=== PATIENT | female | born 1950 | race Caucasian/White ===

== ENCOUNTER 2020-08-16 11:15 | Observation (INO) | payer MEDICARE, OTHER ==
[2020-08-16] MEDS ORDERED: NITROGLYCERIN OINT 1 INCH/GM PACKET TOPICAL STA (11:48)
[2020-08-16] MEDS ORDERED: ASPIRIN 81 MG PO STA (11:48)
--- NOTE | 2020-08-16 11:55 | ED ---
General Adult HPI - General Chief complaint: Chest Pain Stated complaint: SOB Time Seen by Provider: 08/16/20 11:25 Source: patient, RN notes reviewed, old records reviewed Mode of arrival: wheelchair Limitations: no limitations - History of Present Illness Initial comments: This is a 70-year-old male who presents emergency Department complaining of dif ficulty breathing when she woke up today. Patient states she's also had quite a bit of chest discomfort she says is mostly a tightness. Patient states she has a history of COPD because she was a smoker and smoked marijuana for many years. Patient also states she has high blood pressure high cholesterol. Patient denies any diabetes that she has been told in the past she has been borderline. Patient states she is continuing to have chest tightness and she is having occasional back spasms. Patient denies any fever chills or cough. Patient denies any headache patient denies lightheadedness or dizziness. - Related Data Home Medications Medication Instructions Recorded Confirmed Albuterol Sulfate [Ventolin HFA] 2 puff INHALATION RT-Q6H PRN 08/16/20 08/16/20 Fluticasone Nasal [place] [Flonase 2 spr EA NOSTRIL DAILY 08/16/20 08/16/20 Nasal [place]] Ibuprofen [Motrin Ib] 600 mg PO Q8H PRN 08/16/20 08/16/20 Loperamide [Imodium] 2 mg PO BID 08/16/20 08/16/20 Methocarbamol [Robaxin-750] 750 mg PO BID PRN 08/16/20 08/16/20 Omeprazole 40 mg PO DAILY 08/16/20 08/16/20 clonazePAM [KlonoPIN] 0.5 mg PO BID PRN 08/16/20 08/16/20 hydroCHLOROthiazide [Hydrodiuril] 25 mg PO DAILY 08/16/20 08/16/20 lisinopriL [Zestril] 20 mg PO DAILY 08/16/20 08/16/20 Allergies Allergy/AdvReac Type Severity Reaction Status Date / Time citalopram [From Celexa] Allergy Unknown Verified 08/16/20 14:49 codeine Allergy Unknown Verified 08/16/20 14:49 Review of Systems ROS Statement: Those systems with pertinent positive or pertinent negative responses have been documented in the HPI. ROS Other: All systems not noted in ROS Statement are negative. Past Medical History Past Medical History: Hypertension History of Any Multi-Drug Resistant Organisms: None Reported Past Surgical History: Back Surgery Past Psychological History: Anxiety, Depression, PTSD Smoking Status: Never smoker Past Alcohol Use History: None Reported Past Drug Use History: Marijuana General Exam - General Exam Comments Initial Comments: GENERAL: Patient is well-developed and well-nourished. Patient is nontoxic and well- hydrated and is in mild distress. ENT: Neck is soft and supple. No significant lymphadenopathy is noted. Oropharynx is clear. Moist mucous membranes. Neck has full range of motion without cathi citing any pain. EYES: The sclera were anicteric and conjunctiva were pink and moist. Extraocular movements were intact and pupils were equal round and reactive to light. Eyelids were unremarkable. PULMONARY: Unlabored respirations. Good breath sounds bilaterally. No audible rales rhonchi or wheezing was noted. CARDIOVASCULAR: There is a regular rate and rhythm without any murmurs gallops or rubs. ABDOMEN: Soft and nontender with normal bowel sounds. SKIN: Skin is clear with no lesions or rashes and otherwise unremarkable. NEUROLOGIC: Patient is alert and oriented x3. Cranial nerves II through XII are grossly intact. Motor and sensory are also intact. Normal speech, volume and content. Symmetrical smile. MUSCULOSKELETAL: Normal extremities with adequate strength and full range of motion. LYMPHATICS: No significant lymphadenopathy is noted PSYCHIATRIC: Normal psychiatric evaluation. Limitations: no limitations Course Vital Signs 08/16/20 08/16/20 08/16/20 11:25 14:14 15:10 Temperature 97.6 F Pulse Rate 70 77 80 Respiratory 19 18 16 Rate Blood Pressure 115/60 104/57 114/63 O2 Sat by Pulse 100 96 96 Oximetry Medical Decision Making - Medical Decision Making EKG shows normal sinus rhythm at 90 bpm FL interval 240 QRS is 76 Q-T intervals 374 QTC is 457. Patient's EKG shows no ST segment elevation or depression. I will back and to reevaluate the patient patient continued to be short of breath and has some chest discomfort. Chest x-ray shows no acute abnormalities. D-dimer was elevated so I did a CAT scan of the chest showed no acute PE. I started a heparin on the patient because of the unstable angina. I spoke with the sound physician's agreed to admit the patient admitted the patient I consult cardiology I continue the heparin Nitropaste. - Lab Data Result diagrams: 08/16/20 11:56 08/16/20 11:48 Lab Results 08/16/20 08/16/20 08/16/20 Range/Units 11:48 11:48 11:48 WBC (3.8-10.6) k/uL RBC (3.80-5.40) m/uL Hgb (11.4-16.0) gm/dL Hct (34.0-46.0) % MCV (80.0-100.0) fL MCH (25.0-35.0) pg MCHC (31.0-37.0) g/dL RDW (11.5-15.5) % Plt Count (150-450) k/uL MPV Neutrophils % % Lymphocytes % % Monocytes % % Eosinophils % % Basophils % % Neutrophils # (1.3-7.7) k/uL Lymphocytes # (1.0-4.8) k/uL Monocytes # (0-1.0) k/uL Eosinophils # (0-0.7) k/uL Basophils # (0-0.2) k/uL PT (9.0-12.0) sec INR (<1.2) APTT (22.0-30.0) sec D-Dimer (<0.60) mg/L FEU Sodium 136 L (137-145) mmol/L Potassium 5.4 H (3.5-5.1) mmol/L Chloride 106 (98-107) mmol/L Carbon Dioxide 19 L (22-30) mmol/L Anion Gap 11 mmol/L BUN 42 H (7-17) mg/dL Creatinine 1.28 H (0.52-1.04) mg/dL Est GFR (CKD-EPI)AfAm 49 (>60 ml/min/1.73 sqM) Est GFR (CKD-EPI)NonAf 43 (>60 ml/min/1.73 sqM) Glucose 135 H (74-99) mg/dL Calcium 10.1 (8.4-10.2) mg/dL Magnesium 1.8 (1.6-2.3) mg/dL Total Bilirubin 1.2 (0.2-1.3) mg/dL AST 50 H (14-36) U/L ALT 19 (4-34) U/L Alkaline Phosphatase 90 (38-126) U/L Troponin I <0.012 (0.000-0.034) ng/mL NT-Pro-B Natriuret Pep 46 pg/mL Total Protein 8.3 H (6.3-8.2) g/dL Albumin 5.0 (3.5-5.0) g/dL 08/16/20 08/16/20 Range/Units 11:56 11:56 WBC 6.6 (3.8-10.6) k/uL RBC 4.02 (3.80-5.40) m/uL Hgb 11.8 (11.4-16.0) gm/dL Hct 35.1 (34.0-46.0) % MCV 87.3 (80.0-100.0) fL MCH 29.4 (25.0-35.0) pg MCHC 33.7 (31.0-37.0) g/dL RDW 13.4 (11.5-15.5) % Plt Count 295 (150-450) k/uL MPV 6.9 Neutrophils % 57 % Lymphocytes % 33 % Monocytes % 5 % Eosinophils % 2 % Basophils % 1 % Neutrophils # 3.7 (1.3-7.7) k/uL Lymphocytes # 2.2 (1.0-4.8) k/uL Monocytes # 0.3 (0-1.0) k/uL Eosinophils # 0.1 (0-0.7) k/uL Basophils # 0.0 (0-0.2) k/uL PT 10.2 (9.0-12.0) sec INR 0.9 (<1.2) APTT 22.9 (22.0-30.0) sec D-Dimer 0.86 H (<0.60) mg/L FEU Sodium (137-145) mmol/L Potassium (3.5-5.1) mmol/L Chloride (98-107) mmol/L Carbon Dioxide (22-30) mmol/L Anion Gap mmol/L BUN (7-17) mg/dL Creatinine (0.52-1.04) mg/dL Est GFR (CKD-EPI)AfAm (>60 ml/min/1.73 sqM) Est GFR (CKD-EPI)NonAf (>60 ml/min/1.73 sqM) Glucose (74-99) mg/dL Calcium (8.4-10.2) mg/dL Magnesium (1.6-2.3) mg/dL Total Bilirubin (0.2-1.3) mg/dL AST (14-36) U/L ALT (4-34) U/L Alkaline Phosphatase (38-126) U/L Troponin I (0.000-0.034) ng/mL NT-Pro-B Natriuret Pep pg/mL Total Protein (6.3-8.2) g/dL Albumin (3.5-5.0) g/dL Critical Care Time Critical Care Time: Yes Total Critical Care Time: 35 Disposition Clinical Impression: Unstable angina pectoris Disposition: ADMITTED IP TO THIS [facility] Referrals: Nonstaff,Physician [Primary Care Provider] - 1-2 days Time of Disposition: 15:48
[2020-08-16 12:18] LABS: Calcium 10.1 mg/dL (8.4-10.2); Total Bilirubin 1.2 mg/dL (0.2-1.3); Total Protein 8.3 g/dL (6.3-8.2)
--- NOTE | 2020-08-16 12:18 | XR ---
EXAMINATION TYPE: XR chest 2V DATE OF EXAM: 08/16/2020 COMPARISON: NONE HISTORY: Chest pain and shortness of breath TECHNIQUE: Frontal and lateral views of the chest are obtained. FINDINGS: There is no focal air space opacity, pleural effusion, or pneumothorax seen. The cardiac silhouette size is within normal limits. There are overlying leads. There is an S-shaped scoliosis i n the visualized spine, associated degenerative disc changes. Suspect a posterior diaphragmatic herni a on the left. The osseous structures are intact. IMPRESSION: No acute cardiopulmonary process. Probable posterior diaphragmatic hernia on the left.
[2020-08-16 12:19] LABS: Magnesium 1.8 mg/dL (1.6-2.3); Potassium 5.4 mmol/L (3.5-5.1)
[2020-08-16 13:08] LABS: Basophils % (A) 1 %; Eosinophils # (A) 0.1 k/uL (0-0.7); Eosinophils % (A) 2 %; HCT 35.1 % (34.0-46.0); HGB 11.8 gm/dL (11.4-16.0); Lymphocytes # (A) 2.2 k/uL (1.0-4.8); Lymphocytes % (A) 33 %; MCH 29.4 pg (25.0-35.0); MCHC 33.7 g/dL (31.0-37.0); MCV 87.3 fL (80.0-100.0); Mean Platelet Volume 6.9; Monocytes # (A) 0.3 k/uL (0-1.0); Monocytes % (A) 5 %; Neutrophils # (A) 3.7 k/uL (1.3-7.7); Neutrophils % (A) 57 %; Platelet Count 295 k/uL (150-450); RBC 4.02 m/uL (3.80-5.40); RDW 13.4 % (11.5-15.5); WBC 6.6 k/uL (3.8-10.6)
[2020-08-16 13:22] LABS: INR 0.9 (<1.2); Partial Thromboplastin Time 22.9 sec (22.0-30.0); Prothrombin Time 10.2 sec (9.0-12.0)
[2020-08-16 13:33] LABS: D-Dimer 0.86 mg/L FEU (<0.60)
--- NOTE | 2020-08-16 15:41 | CT ---
EXAMINATION TYPE: CT chest angio for PE DATE OF EXAM: 08/16/2020 COMPARISON: Chest x-ray 08/16/2020 HISTORY: SOB, chest pain CT DLP: 306.4 mGycm Automated exposure control for dose reduction was used. CONTRAST: CT Chest for pulmonary embolism performed with with IV Contrast, patient injected with 80cc mL of Iso stiven 370. FINDINGS: LUNGS: The lungs are grossly clear, there is no concerning parenchymal mass or nodule identified. T here is no pleural effusion or pneumothorax seen. The tracheobronchial tree is patent. MEDIASTINUM: There is satisfactory enhancement of the pulmonary artery and its branches, there is no CT evidence for pulmonary embolism. There are no greater than 1 cm hilar or mediastinal lymph nodes. No pericardial effusion is seen. AORTA: No additional significant abnormality is seen. For super aortic branch vessels are present OTHER: Posterior diaphragmatic hernia contains fat and the left adrenal gland. Patient is post elma cystectomy. IMPRESSION: No evident pulmonary embolus. Posterior left diaphragmatic hernia.
[2020-08-16] MEDS ORDERED: NITROGLYCERIN SL TABS 0.4 MG TAB SUBLINGUAL PRN (15:48)
[2020-08-16] MEDS ORDERED: NALOXONE 0.4 MG/ML 1 ML VIAL IV PRN (18:08)
[2020-08-16] MEDS ORDERED: ACETAMINOPHEN TAB 325 MG TAB PO PRN (18:08)
[2020-08-16] MEDS ORDERED: ALBUTEROL NEBULIZED 2.5 MG/3 ML INHALATION PRN (18:10)
[2020-08-16] MEDS ORDERED: methocarbamoL 750 MG TAB PO PRN (18:10)
--- NOTE | 2020-08-16 18:12 | P.HPIM ---
History of Present Illness H&P Date: 08/16/20 Chief Complaint: Chest tightness, dyspnea 70-year-old woman with medical history of hypertension, chronic pain, IBS, COPD presented with chest tightness, dyspnea. Patient says her symptoms started this morning around 9:30 and got progressively worse throughout the day, prompting her visit to the emergency room. Since her arrival to the ER, her symptoms did get better but have not resolved. She still feels mild chest tightness as well as dyspnea. She is however on room air, EKG was nonischemic, troponin was negative. She reports symptoms of back pain (chronic), diarrhea (chronic), nausea, (chronic). She denies fevers, chills, abdominal pain, numbness/weakness of extremities, dysuria, dyschezia. In the emergency room she is afebrile, hemodynamically stable, 98% on room air. Chemistries demonstrate hyperkalemia to 5.4, BUNs of 42, creatinine of 1.3. LFTs demonstrate AST of 50, ALT of 19. Troponins were negative 2. Chest x-ray and CTA were negative for acute cardiopulmonary process, but did demonstrate posterior diaphragmatic hernia on the left. Review of Systems All Systems reviewed and pertinent positives and negatives noted in HPI, all other symptoms are negative Past Medical History Past Medical History: Hypertension History of Any Multi-Drug Resistant Organisms: None Reported Past Surgical History: Back Surgery Past Psychological History: Anxiety, Depression, PTSD Smoking Status: Never smoker Past Alcohol Use History: None Reported Past Drug Use History: Marijuana Medications and Allergies Home Medications Medication Instructions Recorded Confirmed Type Albuterol Sulfate [Ventolin HFA] 2 puff INHALATION RT-Q6H PRN 08/16/20 08/16/20 History Fluticasone Nasal [place] [Flonase 2 spr EA NOSTRIL DAILY 08/16/20 08/16/20 History Nasal [place]] Ibuprofen [Motrin Ib] 600 mg PO Q8H PRN 08/16/20 08/16/20 History Loperamide [Imodium] 2 mg PO BID 08/16/20 08/16/20 History Methocarbamol [Robaxin-750] 750 mg PO BID PRN 08/16/20 08/16/20 History Omeprazole 40 mg PO DAILY 08/16/20 08/16/20 History clonazePAM [KlonoPIN] 0.5 mg PO BID PRN 08/16/20 08/16/20 History hydroCHLOROthiazide [Hydrodiuril] 25 mg PO DAILY 08/16/20 08/16/20 History lisinopriL [Zestril] 20 mg PO DAILY 08/16/20 08/16/20 History Allergies Allergy/AdvReac Type Severity Reaction Status Date / Time citalopram [From Celexa] Allergy Unknown Verified 08/16/20 14:49 codeine Allergy Unknown Verified 08/16/20 14:49 Physical Exam Osteopathic Statement: *. No significant issues noted on an osteopathic structural exam other than those noted in the History and Physical/Consult. Vitals: Vital Signs Temp Pulse Resp BP Pulse Ox 08/16/20 17:34 98.1 F 79 18 103/57 98 08/16/20 15:10 80 16 114/63 96 08/16/20 14:14 77 18 104/57 96 08/16/20 11:25 97.6 F 70 19 115/60 100 Intake and Output 08/16/20 08/16/20 08/16/20 06:59 14:59 22:59 Other: Weight 68.039 kg Gen: awake, alert HEENT: normocephalic, atraumatic, good hearing acuity, moist mucous membranes Resp: good air exchange, breathing comfortably with no accessory muscle use, clear to auscultation bilaterally without wheezes or crackles CVS: good distal perfusion x 4, regular rate and rhythm without murmurs GI: soft, NTTP, ND : no SPT, no CVAT, jacobs catheter not present MSK: no pitting edema, no clubbing Neuro: non-focal, moving all extremities Psych: cooperative, euthymic mood Results CBC & Chem 7: 08/16/20 11:56 08/16/20 11:48 Labs: Abnormal Lab Results - Last 24 Hours (Table) 08/16/20 08/16/20 Range/Units 11:48 11:56 D-Dimer 0.86 H (<0.60) mg/L FEU Sodium 136 L (137-145) mmol/L Potassium 5.4 H (3.5-5.1) mmol/L Carbon Dioxide 19 L (22-30) mmol/L BUN 42 H (7-17) mg/dL Creatinine 1.28 H (0.52-1.04) mg/dL Glucose 135 H (74-99) mg/dL AST 50 H (14-36) U/L Total Protein 8.3 H (6.3-8.2) g/dL Assessment and Plan Assessment: Chest pressure Dyspnea -Admit to observation, telemetry -Cardiology consult to the ER -Aspirin daily -Trend troponins -Oxygen when necessary -DuoNeb's when necessary Acute Kidney Injury -IVF -repeat BMP, Mg tomorrow AM COPD without exacerbation Hypertension Mood disorder Irritable bowel syndrome Chronic pain -Home medications were reviewed and reconciled -Continue home Albuterol -Hold Home HCTZ, Lisinopril -Hold home ibuprofen -Continue home methocarbamol, clonazepam Heparin 3 times a day for DVT prophylaxis Patient is a full code
[2020-08-16] MEDS: NITROGLYCERIN OINT 1 INCH/GM PACKET TOPICAL SCH (19:18)
[2020-08-16] MEDS: SODIUM CHLORIDE 0.9% 1,000 ML IV SCH (19:22)
[2020-08-16] MEDS: IPRATROPIUM-ALBUTEROL 3 ML NEB INHALATION PRN (20:15)
[2020-08-16] MEDS: LOPERAMIDE 2 MG CAP PO SCH (22:09)
[2020-08-16] MEDS: clonazePAM 0.5 MG TAB PO PRN (22:22)
[2020-08-17] MEDS: HEPARIN SODIUM,PORCINE/PF 5,000 UNIT/0.5 ML SYRINGE SQ SCH ×4 (00:35→23:22)
[2020-08-17] MEDS: NITROGLYCERIN OINT 1 INCH/GM PACKET TOPICAL SCH ×2 (00:36→06:22)
[2020-08-17] MEDS: SODIUM CHLORIDE 0.9% 1,000 ML IV SCH ×3 (05:04→23:23)
[2020-08-17 05:48] LABS: Basophils # (A) 0.1 k/uL (0-0.2); Basophils % (A) 1 %; Eosinophils # (A) 0.1 k/uL (0-0.7); Eosinophils % (A) 2 %; HCT 33.4 % (34.0-46.0); HGB 10.8 gm/dL (11.4-16.0); Hypochromasia Slight; Lymphocytes # (A) 2.7 k/uL (1.0-4.8); Lymphocytes % (A) 42 %; MCH 29.4 pg (25.0-35.0); MCHC 32.2 g/dL (31.0-37.0); MCV 91.4 fL (80.0-100.0); Mean Platelet Volume 7.1; Monocytes # (A) 0.4 k/uL (0-1.0); Monocytes % (A) 6 %; Neutrophils # (A) 2.8 k/uL (1.3-7.7); Neutrophils % (A) 45 %; Platelet Count 301 k/uL (150-450); RBC 3.65 m/uL (3.80-5.40); RDW 13.7 % (11.5-15.5); WBC 6.3 k/uL (3.8-10.6)
[2020-08-17 05:57] LABS: African American GFR (CKD) 55 (>60 ml/min/1.73 sqM); Anion Gap 7 mmol/L; Blood Urea Nitrogen 39 mg/dL (7-17); Calcium 9.2 mg/dL (8.4-10.2); Carbon Dioxide 20 mmol/L (22-30); Chloride 112 mmol/L (98-107); Glucose 105 mg/dL (74-99); Non-African American GFR(CKD) 48 (>60 ml/min/1.73 sqM); Potassium 4.2 mmol/L (3.5-5.1); Sodium 139 mmol/L (137-145)
[2020-08-17] MEDS: PANTOPRAZOLE 40 MG TABLET PO SCH (07:48)
[2020-08-17] MEDS: LOPERAMIDE 2 MG CAP PO SCH ×2 (07:48→20:29)
[2020-08-17] MEDS: IPRATROPIUM-ALBUTEROL 3 ML NEB INHALATION PRN (08:01)
[2020-08-17] MEDS ORDERED: DOBUTamine DRIP for NUC MED 500 MG in DEXTROSE/WATER 1 250ML.BAG IV PRN (08:54)
[2020-08-17] MEDS ORDERED: ASPIRIN 325 MG TAB PO SCH (09:00)
[2020-08-17] MEDS: FLUTICASONE 50MCG/SPRAY NASAL 16GM EA NOSTRIL SCH (09:04)
--- NOTE | 2020-08-17 10:22 | P.CRDCN ---
History of Present Illness History of present illness: HISTORY OF PRESENTING ILLNESS This is a pleasant 70-year-old female past medical history significant for hypertension, chronic back pain, former nicotine and marijuana dependence a nd COPD. She denies prior history of coronary artery disease and does not follow in the office with a paper bundler. We have been asked to see in consultation for chest pain. She states she woke up yesterday morning with a spasm and tightness in her upper back from shoulder to shoulder. She states she has had this frequently in the past however on this occasion she also felt a tightness in her chest associated with shortness of breath. She was able to go to religion however the tightness in her chest started to increase and feel more heavy prompting her to come to the hospital for further evaluation. She continues to have a discomfort in her chest at the time of her evaluation. There is no radiation to the arm, back, neck or jaw. She currently has no symptoms of shortness of breath, dizziness, palpitations, nausea, vomiting or diaphoresis. EKG performed on admission and again this morning reveal sinus mechanism with no acute ST or T wave abnormalities noted. Diagnostic imaging of the chest is unremarkable. Laboratory data reviewed, hemoglobin 10.8, d-dimer 0.86, sodium 139, potassium on admission 5. 4 repeat today 4.2, creatinine on admission 1.28 repeat today 1.16, magnesium 1.8, cardiac enzymes negative 3, and T proBNP 46. Current cardiac medications include lisinopril 20 mg daily and hydrochlorothiazide 25 mg daily. REVIEW OF SYSTEMS At the time of my exam: CONSTITUTIONAL: Denies fever or chills. CARDIOVASCULAR: Denies chest pain, shortness of breath, orthopnea, PND or palpitations. RESPIRATORY: Denies cough. GASTROINTESTINAL: Denies abdominal pain, diarrhea, constipation, nausea or vomiting. MUSCULOSKELETAL: Denies myalgias. NEUROLOGIC: Denies numbness, tingling, headacbe or weakness. ENDOCRINE: Denies fatigue, weight change, polydipsia or polyurina. GENITOURINARY: Denies burning, hematuria or urgency with micturation. HEMATOLOGIC: Denies history of anemia or bleeding. PHYSICAL EXAMINATION Blood pressure 128/63 heart rate 69 afebrile and maintaining oxygen saturation on room air. CONSTITUTIONAL: No apparent distress. HEENT: Head is normocephalic. Pupils are equal, round. Sclerae anicteric. Mucous membranes of the mouth are moist. No JVD. No carotid bruit. CHEST EXAMINATION: Lungs are clear to auscultation. No chest wall tenderness is noted on palpation or with deep breathing. HEART EXAMINATION: Regular rate and rhythm. S1, S2 heard. No murmurs, gallops or rub. ABDOMEN: Soft, nontender. Positive bowel sounds. EXTREMITIES: 2+ peripheral pulses, no lower extremity edema and no calf tenderness. NEUROLOGIC EXAMINATION: Patient is awake, alert and oriented x3. ASSESSMENT Chest pain Hypertension Dehydration Hyperkalemia, resolved Chronic marijuana dependence, the patient states she quit one week ago Former nicotine dependence PLAN An acute coronary event has been ruled out. Obtain 2-D echocardiogram and Doppler study to assess cardiac structure and function. Perform dobutamine stress echocardiogram to assess for stress-induced cardiac ischemia. Discontinue hydrochlorothiazide and continue lisinopril 20 mg daily. If her blood pressure requires additional medication we will consider increasing the lisinopril or possibly adding a calcium channel dot in the outpatient setting. If stress test is normal she may be discharged from a cardiac perspective and follow-up with Dr. Valente in the office in 3-4 weeks. Thank you kindly for this consultation. Nurse Practitioner note has been reviewed, I agree with a documented findings and plan of care. Patient was seen and examined. Past Medical History Past Medical History: COPD, GERD/Reflux, Hearing Disorder / Deafness, Hypertensi on, Pneumonia, Sleep Apnea/CPAP/BIPAP Additional Past Medical History / Comment(s): covid +december 2019, herniax2,IBS,fatty liver,arthritis,cyst on pancreas, intraductal papillary mucinous neoplasm 2017, Djd upper arm, sciatica, pre Diabetic, left breast lump. History of Any Multi-Drug Resistant Organisms: None Reported Past Surgical History: Back Surgery, Cholecystectomy Additional Past Surgical History / Comment(s): right oopherectomy, polyp on throat removed, leep procedure Past Anesthesia/Blood Transfusion Reactions: No Reported Reaction Past Psychological History: Anxiety, Depression, PTSD Smoking Status: Former smoker Past Alcohol Use History: Occasional Past Drug Use History: Marijuana - Past Family History Father Family Medical History: Cancer Additional Family Medical History / Comment(s): stomach cancer Mother Family Medical History: Diabetes Mellitus Medications and Allergies Home Medications Medication Instructions Recorded Confirmed Type Albuterol Sulfate [Ventolin HFA] 2 puff INHALATION RT-Q6H PRN 08/16/20 08/16/20 History Fluticasone Nasal [place] [Flonase 2 spr EA NOSTRIL DAILY 08/16/20 08/16/20 History Nasal [place]] Ibuprofen [Motrin Ib] 600 mg PO Q8H PRN 08/16/20 08/16/20 History Loperamide [Imodium] 2 mg PO BID 08/16/20 08/16/20 History Methocarbamol [Robaxin-750] 750 mg PO BID PRN 08/16/20 08/16/20 History Omeprazole 40 mg PO DAILY 08/16/20 08/16/20 History clonazePAM [KlonoPIN] 0.5 mg PO BID PRN 08/16/20 08/16/20 History lisinopriL [Zestril] 20 mg PO DAILY 08/16/20 08/16/20 History Allergies Allergy/AdvReac Type Severity Reaction Status Date / Time citalopram [From Celexa] Allergy Unknown Verified 08/16/20 14:49 codeine Allergy Unknown Verified 08/16/20 14:49 Physical Exam Vitals: Vital Signs Temp Pulse Pulse Resp BP BP Pulse Ox 08/17/20 08:11 69 08/17/20 08:01 66 08/17/20 07:00 97.7 F 83 17 128/63 98 08/17/20 01:46 98.3 F 94 17 99/61 99 08/16/20 20:29 80 08/16/20 20:16 76 08/16/20 20:08 97 08/16/20 20:00 98.3 F 88 17 117/64 93 L 08/16/20 19:21 84 16 126/67 98 08/16/20 17:34 98.1 F 79 18 103/57 98 08/16/20 15:10 80 16 114/63 96 08/16/20 14:14 77 18 104/57 96 08/16/20 11:25 97.6 F 70 19 115/60 100 Intake and Output 08/16/20 08/17/20 08/17/20 22:59 06:59 14:59 Other: Voiding Method Toilet # Voids 1 1 Weight 68.039 kg Results 08/17/20 04:24 08/17/20 04:24 Cardiac Enzymes 08/16/20 08/16/20 08/16/20 Range/Units 11:48 11:48 16:00 AST 50 H (14-36) U/L Troponin I <0.012 <0.012 (0.000-0.034) ng/mL 08/16/20 Range/Units 18:57 AST (14-36) U/L Troponin I <0.012 (0.000-0.034) ng/mL Coagulation 08/16/20 Range/Units 11:56 PT 10.2 (9.0-12.0) sec APTT 22.9 (22.0-30.0) sec CBC 08/16/20 08/17/20 Range/Units 11:56 04:24 WBC 6.6 6.3 (3.8-10.6) k/uL RBC 4.02 3.65 L (3.80-5.40) m/uL Hgb 11.8 10.8 L (11.4-16.0) gm/dL Hct 35.1 33.4 L (34.0-46.0) % Plt Count 295 301 (150-450) k/uL Comprehensive Metabolic Panel 08/16/20 08/17/20 Range/Units 11:48 04:24 Sodium 136 L 139 (137-145) mmol/L Potassium 5.4 H 4.2 (3.5-5.1) mmol/L Chloride 106 112 H (98-107) mmol/L Carbon Dioxide 19 L 20 L (22-30) mmol/L BUN 42 H 39 H (7-17) mg/dL Creatinine 1.28 H 1.16 H (0.52-1.04) mg/dL Glucose 135 H 105 H (74-99) mg/dL Calcium 10.1 9.2 (8.4-10.2) mg/dL AST 50 H (14-36) U/L ALT 19 (4-34) U/L Alkaline Phosphatase 90 (38-126) U/L Total Protein 8.3 H (6.3-8.2) g/dL Albumin 5.0 (3.5-5.0) g/dL Current Medications Generic Name Dose Route Start Last Admin Trade Name Freq PRN Reason Stop Dose Admin Acetaminophen 650 mg 08/16/20 18:08 Acetaminophen Tab 325 Mg Tab PO Q6HR PRN Mild Pain or Fever > 100.5 Albuterol/Ipratropium 3 ml 08/16/20 18:12 08/17/20 08:01 Ipratropium-Albuterol 3 Ml Neb INHALATION 3 ml RT-QID PRN Administration Shortness Of Breath Or Wheezing Aspirin 81 mg 08/18/20 09:00 Aspirin 81 Mg PO DAILY LUIS Clonazepam 0.5 mg 08/16/20 18:10 08/16/20 22:22 Clonazepam 0.5 Mg Tab PO 0.5 mg BID PRN Administration Anxiety Fluticasone Propionate 2 spray 08/17/20 09:00 08/17/20 09:04 Fluticasone 50mcg/[place] Nasal 16gm EA NOSTRIL 2 spray DAILY LUIS Administration Heparin Sodium (Porcine) 5,000 unit 08/17/20 00:00 08/17/20 07:48 Heparin Sodium,Porcine/Pf 5,000 Unit/0.5 Ml Syringe SQ 5,000 unit Q8HR LUIS Administration Sodium Chloride 1,000 mls @ 100 mls/hr 08/16/20 18:15 08/17/20 05:04 Saline 0.9% IV 100 mls/hr .Q10H LUIS Administration Dobutamine HCl/Dextrose 500 mg 250 mls @ 20.412 mls/hr 08/17/20 08:54 / IV Solution IV 08/17/20 12:55 .[id number] PRN Per Protocol Protocol 10 MCG/KG/MIN Lisinopril 20 mg 08/17/20 09:15 Lisinopril 20 Mg Tab PO DAILY LUIS Loperamide HCl 2 mg 08/16/20 21:00 08/17/20 07:48 Loperamide 2 Mg Cap PO 2 mg BID LUIS Administration Methocarbamol 750 mg 08/16/20 18:10 Methocarbamol 750 Mg Tab PO BID PRN Pain Naloxone HCl 0.2 mg 08/16/20 18:08 Naloxone 0.4 Mg/Ml 1 Ml Vial IV Q2M PRN Opioid Reversal Nitroglycerin 0.4 mg 08/16/20 15:48 Nitroglycerin Sl Tabs 0.4 Mg Tab SUBLINGUAL Q5M PRN Chest Pain Pantoprazole Sodium 40 mg 08/17/20 09:00 08/17/20 07:48 Pantoprazole 40 Mg Tablet PO 40 mg DAILY LUIS Administration Intake and Output 08/16/20 08/17/20 08/17/20 22:59 06:59 14:59 Other: Voiding Method Toilet # Voids 1 1 Weight 68.039 kg 08/17/20 04:24 08/17/20 04:24
[2020-08-17 11:29] LABS: Chol/HDL Ratio 5.88; Cholesterol 194 mg/dL (0-200); LDL Cholesterol,Calculated 116.6 mg/dL (0.0-131.0)
[2020-08-17] MEDS: lisinopriL 20 MG TAB PO SCH (12:52)
[2020-08-17 13:42] VITALS: BMI 29.2
--- NOTE | 2020-08-17 14:32 | P.PN ---
Subjective Progress Note Date: 08/17/20 No new complaints. Plan for stress test today, discharge home tomorrow. Objective - Vital Signs Vital signs: Vital Signs Temp 97.7 F 08/17/20 07:00 Pulse 69 08/17/20 08:11 Resp 17 08/17/20 07:00 BP 128/63 08/17/20 07:00 Pulse Ox 98 08/17/20 07:00 Intake & Output 08/16/20 08/17/20 08/17/20 18:59 06:59 18:59 Weight 68.039 kg 68.039 kg 68.04 kg Other: Voiding Method Toilet # Voids 1 - Exam Gen: awake, alert HEENT: normocephalic, atraumatic, good hearing acuity, moist mucous membranes Resp: good air exchange, breathing comfortably with no accessory muscle use, clear to auscultation bilaterally without wheezes or crackles CVS: good distal perfusion x 4, regular rate and rhythm without murmurs GI: soft, NTTP, ND : no SPT, no CVAT, jacobs catheter not present MSK: no pitting edema, no clubbing Neuro: non-focal, moving all extremities Psych: cooperative, euthymic mood - Labs CBC & Chem 7: 08/17/20 04:24 08/17/20 04:24 Labs: Abnormal Lab Results - Last 24 Hours (Table) 08/17/20 08/17/20 Range/Units 04:24 04:24 RBC 3.65 L (3.80-5.40) m/uL Hgb 10.8 L (11.4-16.0) gm/dL Hct 33.4 L (34.0-46.0) % Ch[place] 112 H (98-107) mmol/L Carbon Dioxide 20 L (22-30) mmol/L BUN 39 H (7-17) mg/dL Creatinine 1.16 H (0.52-1.04) mg/dL Glucose 105 H (74-99) mg/dL Triglycerides 222.0 H (0.0-149.0) mg/dL VLDL Cholesterol, Calc 44.40 H (5.00-40.00) mg/dL HDL Cholesterol 33.0 L (40.0-60.0) mg/dL Assessment and Plan Assessment: Chest pressure Dyspnea -Admit to observation, telemetry -Cardiology consult to the ER -Aspirin daily -Trend troponins -Oxygen when necessary -DuoNeb's when necessary Acute Kidney Injury -IVF -repeat BMP, Mg tomorrow AM COPD without exacerbation Hypertension Mood disorder Irritable bowel syndrome Chronic pain -Home medications were reviewed and reconciled -Continue home Albuterol -Hold Home HCTZ, Lisinopril -Hold home ibuprofen -Continue home methocarbamol, clonazepam Heparin 3 times a day for DVT prophylaxis Patient is a full code
--- NOTE | 2020-08-17 17:55 | P.STRESS ---
- Stress Test Note Stress Test Results/Findings: Exam Performed: dobutamine stress echo Exam Date: 08/17/20 Reason for Exam: CP Height: 5 ft Weight: 68.04 kg Protocol: DOBUTAMINE STRESS ECHO Stage: 30 mcg Duration of Exercise: 7:04 Resting Heart Rate: 74 Resting Blood Pressure: 117/64 Maximum Achieved Heart Rate: 137 Maximum Achieved Blood Pressure: 132/63 85% PMHR: 128 100% PMHR: 150 METS: NA Technologist Comment: Stress Test Results/Findings: Baseline heart rate 74 beats a minute, Baseline blood pressure 117/64 mmHg Baseline twelve-lead EKG was normal Received dobutamine per protocol after 20 mics No ECG ms ischemia Baseline 2-D echo showed normal LV systolic function without wall motion normalities With dobutamine there was augmentation of overall LV contractility without development of any wall motion ( At recovery regional global LV systolic function within normal impression No ECG or echocardiographic evidence for ischemia at this low level dobutamine stress echo protocol
--- NOTE | 2020-08-17 19:00 | ECHOF ---
Referral Reason:cp, sob MEASUREMENTS -------- HEIGHT: 152.4 cm WEIGHT: 68.0 kg BP: 128/63 IVSd: 1.2 cm (0.6 - 1.1) LVIDd: 3.2 cm (3.9 - 5.3) LVPWd: 1.3 cm (0.6 - 1.1) EDV(Teich): 40 ml IVSs: 1.3 cm LVIDs: 2.2 cm LVPWs: 1.5 cm %IVS Thck: 7 % ESV(Teich): 17 ml EF(Teich): 57 % %FS: 29 % SV(Teich): 23 ml RVIDd: 3.9 cm (< 3.3) RA Diam: 4.5 cm LALs A4C: 4.6 cm LAAs A4C: 14.3 cm LAESV A-L A4C: 38 ml LAESV MOD A4C: 33 ml LALs A2C: 4.6 cm LAAs A2C: 14.5 cm LAESV A-L A2C: 39 ml LAESV MOD A2C: 37 ml LAESV(A-L): 38 ml LAESV Index (A-L): 23.32 ml/m Ao Diam: 2.7 cm (2.0 - 3.7) AV Cusp: 1.5 cm (1.5 - 2.6) EPSS: 0.5 cm MV E Kobe: 0.92 m/s MV DecT: 168 ms MV Dec Kay: 5.5 m/s MV A Kobe: 1.21 m/s MV E/A Ratio: 0.76 MV PHT: 49 ms LVOT Vmax: 1.15 m/s LVOT maxP.33 mmHg TR Vmax: 2.60 m/s TR maxP.06 mmHg RAP: 5.00 mmHg RVSP: 32.06 mmHg MV EF SLOPE: 86.16 mm/s (70 - 150) MV EXCURSION: 20.43 mm (> 18.000) FINDINGS -------- Sinus rhythm. This was a technically adequate study. The left ventricular size is normal. There is mild concentric left ventricular hypertrophy. Overa left ventricular systolic function is normal with, an EF between 55 - 60 %. The diastolic fillin g pattern is normal for the age of the patient 13.93. The right ventricle is mild to moderately enlarged. Normal LA size by volume 22+/-6 ml/m2. The right atrium is mildly enlarged. Interatrial and interventricular septum intact. The aortic valve was not well visualized. There is no evidence of aortic regurgitation. There is no evidence of aortic stenosis. No mitral regurgitation. Mild tricuspid regurgitation present. There is borderline pulmonary artery hypertension. The righ t ventricular systolic pressure, as measured by Doppler, is 32.06mmHg. The pulmonic valve was not well visualized. There is no pulmonic regurgitation present. The aortic root size is normal. Normal inferior vena cava with normal inspiratory collapse consistent with estimated right atrial pre ssure of 5 mmHg. There is no pericardial effusion. CONCLUSIONS -------- 1. The left ventricular size is normal. 2. There is mild concentric left ventricular hypertrophy. 3. Overall left ventricular systolic function is normal with, an EF between 55 - 60 %. 4. The right ventricle is mild to moderately enlarged. 5. The right atrium is mildly enlarged. 6. Mild tricuspid regurgitation present. 7. There is borderline pulmonary artery hypertension. 8. The right ventricular systolic pressure, as measured by Doppler, is 32.06mmHg. DRUG ENFORCEMENT ADMINISTRATION AGENT: Devi Sanz RDCS
[2020-08-17] MEDS: clonazePAM 0.5 MG TAB PO PRN (23:22)
[2020-08-18 07:42] VITALS: BP 138/82; PULSE 83; RESP 17; TEMP 97.8
[2020-08-18] MEDS: HEPARIN SODIUM,PORCINE/PF 5,000 UNIT/0.5 ML SYRINGE SQ SCH (08:40)
[2020-08-18] MEDS: PANTOPRAZOLE 40 MG TABLET PO SCH (08:41)
[2020-08-18] MEDS: FLUTICASONE 50MCG/SPRAY NASAL 16GM EA NOSTRIL SCH (08:41)
[2020-08-18] MEDS: LOPERAMIDE 2 MG CAP PO SCH (08:41)
[2020-08-18] MEDS: lisinopriL 20 MG TAB PO SCH (08:41)
[2020-08-18] MEDS ORDERED: ASPIRIN 81 MG PO SCH (09:00)
--- NOTE | 2020-08-18 10:57 | P.DS ---
Providers Date of admission: 08/16/20 16:04 Expected date of discharge: 08/18/20 Attending physician: Chandu Pearl MD Consults: 08/16/20 15:49 Consult Physician Urgent Consulting Provider: [facility] Consult Reason/Comments: Unstable angina Do you want consulting provider notified?: Yes Primary care physician: Physician Nonstaff Hospital Course: Discharge Diagnosis: Atypical Chest pain, acute coronary event ruled out COPD with mild dyspnea with exertion not in acute exacerbation Acute kidney injury, resolved Hypertension Hyperlipidemia Irritable bowel syndrome Chronic pain Hospital Course: Patient is a very pleasant 7-year-old female with a past medical history of hypertension, hyperlipidemia, COPD not on home oxygen dependent who presented to the hospital on 08/16/20 with a chief complaint of shortness of breath and dyspnea with exertion resulting in admission under our services with consultation to cardiology. An EKG was completed showing normal sinus rhythm and 90 bpm. Troponins were trended and negative at < 0.012 x 3. Chest x-ray negative for acute cardiopulmonary process. CTA negative for PE. Echocardiogram completed revealing a normal ejection fraction of 55-60% with no significant valvular abnormalities. Dobutamine stress echo was negative for evidence of ischemia. Acute coronary event has been ruled out. Patient medically stable for discharge home and instructed to follow-up with PCP in 1-2 days and cardiology in 2-3 weeks. Physical examination: Patient seen and examined at bedside. She reports feeling great this morning and denies having any complaints including headache, lightheadedness, dizziness, chest pain, palpitations, shortness of breath, dyspnea with exertion, abdominal pain, nausea, vomiting, or experiencing any pain/swelling/weakness in her extremities. Patient reports feeling great and states that she feels that she is ready to go home. Vital signs reviewed and stable. General: Nontoxic, no distress and appears stated age. Derm: Skin warm and dry, normal coloration for ethnicity. Head: Atraumatic, normocephalic and symmetric. Eyes: EOMs intact, no lid lag, and anicteric sclera Mouth: no lip lesions, mucus membranes moist Cardiovascular: regular rate and rhythm with normal S1S2, no murmur, positive posterior tibial pulses bilaterally, and cap refill < 2 seconds. Lungs: Respirations even, regular, and unlabored on room air. Lungs CTA bilaterally, no rhonchi, no rales, no wheezing, and no accessory muscle usage. Abdominal: soft, nontender to palpation, no guarding, no appreciable organomegaly Ext: ROM intact. No gross muscle atrophy, no edema, no contractures Neuro: Speech clear, face symmetrical and CN II-XII grossly intact with no noted focal neuro deficits Psych: Alert and oriented to person, place, time, and situation. Appropriate and pleasant affect. A total of 45 minutes of time were spent preparing this complex discharge summary. Plan - Discharge Summary New Discharge Prescriptions: New Aspirin 81 mg PO DAILY 30 Days #30 chew Continue Methocarbamol [Robaxin-750] 750 mg PO BID PRN PRN Reason: Pain Albuterol Sulfate [Ventolin HFA] 2 puff INHALATION RT-Q6H PRN PRN Reason: Shortness Of Breath clonazePAM [KlonoPIN] 0.5 mg PO BID PRN PRN Reason: Anxiety Omeprazole 40 mg PO DAILY Ibuprofen [Motrin Ib] 600 mg PO Q8H PRN PRN Reason: Pain Or Fever > 100.5 lisinopriL [Zestril] 20 mg PO DAILY Loperamide [Imodium] 2 mg PO BID Fluticasone Nasal [place] [Flonase Nasal [place]] 2 spr EA NOSTRIL DAILY Discontinued hydroCHLOROthiazide [Hydrodiuril] 25 mg PO DAILY Discharge Medication List Albuterol Sulfate [Ventolin HFA] 2 puff INHALATION RT-Q6H PRN 08/16/20 [History] Fluticasone Nasal [place] [Flonase Nasal [place]] 2 spr EA NOSTRIL DAILY 08/16/20 [History] Ibuprofen [Motrin Ib] 600 mg PO Q8H PRN 08/16/20 [History] Loperamide [Imodium] 2 mg PO BID 08/16/20 [History] Methocarbamol [Robaxin-750] 750 mg PO BID PRN 08/16/20 [History] Omeprazole 40 mg PO DAILY 08/16/20 [History] clonazePAM [KlonoPIN] 0.5 mg PO BID PRN 08/16/20 [History] lisinopriL [Zestril] 20 mg PO DAILY 08/16/20 [History] Aspirin 81 mg PO DAILY 30 Days #30 chew 08/18/20 [Rx] Follow up Appointment(s)/Referral(s): Reese Valente MD [STAFF PHYSICIAN] - 3 Weeks (Office will call patient with appointment time) Jorge Gonzalez [STAFF PHYSICIAN] - 1-2 Days Patient Instructions/Handouts: Chest Pain (DC), Heart Healthy Diet (DC) Activity/Diet/Wound Care/Special Instructions: Activity: As tolerated Diet: Heart healthy diet Special Instructions: Thank you for allowing us to participate in your care, it was a pleasure having you for patient!! Please be sure to follow-up and keep all appointments for follow-up visits. Please take her medication as directed without missing any doses. Discharge Disposition: HOME SELF-CARE
== END 2020-08-18 11:20 | disposition home or self-care (01) ==
LOC: EC 11:15 → 6NMEDSUR 16:04
PROVIDERS: ADMIT Internal Medicine; ATTEND Internal Medicine
DX: J44.1 Chronic obstructive pulmonary disease with (acute) exacerbation (principal); N17.9 Acute kidney failure, unspecified; I10 Essential (primary) hypertension; E78.5 Hyperlipidemia, unspecified; K58.9 Irritable bowel syndrome, unspecified; M19.90 Unspecified osteoarthritis, unspecified site; G89.29 Other chronic pain; M54.9 Dorsalgia, unspecified; M54.30 Sciatica, unspecified side; E78.00 Pure hypercholesterolemia, unspecified; E87.5 Hyperkalemia; I20.0 Unstable angina; M62.830 Muscle spasm of back; K44.9 Diaphragmatic hernia without obstruction or gangrene; F32.9 Major depressive disorder, single episode, unspecified; F43.10 Post-traumatic stress disorder, unspecified; K21.9 Gastro-esophageal reflux disease without esophagitis; K76.0 Fatty (change of) liver, not elsewhere classified; D13.6 Benign neoplasm of pancreas; G47.30 Sleep apnea, unspecified; H91.90 Unspecified hearing loss, unspecified ear; Z79.899 Other long term (current) drug therapy; Z79.82 Long term (current) use of aspirin; Z88.5 Allergy status to narcotic agent; Z88.8 Allergy status to other drugs, medicaments and biological substances; Z86.16 Personal history of COVID-19; Z87.01 Personal history of pneumonia (recurrent); Z86.59 Personal history of other mental and behavioral disorders; Z87.891 Personal history of nicotine dependence; Z85.07 Personal history of malignant neoplasm of pancreas; Z86.018 Personal history of other benign neoplasm; Z83.3 Family history of diabetes mellitus; Z80.0 Family history of malignant neoplasm of digestive organs
CPT/HCPCS: 96360; 96361; 96372 ×2; 99291; 36415; 94640 ×2; 93005; 93306; 93351; 85379; 83880; 80061; 80053; 80048; 83735 ×2; 84484; 85025 ×2; 85610; 85730; 71046; 71275; G0378 ×3; J1250; Q9967; J1644 ×2

== ENCOUNTER → 2020-09-21 | Outpatient (CLI) | payer MEDICARE, OTHER ==
--- NOTE | 2020-09-21 12:16 | XR ---
EXAMINATION TYPE: XR thoracic spine complete DATE OF EXAM: 09/21/2020 CLINICAL HISTORY: pain TECHNIQUE: Frontal, lateral, and swimmer's view of thoracic spine are obtained. COMPARISON: None. FINDINGS: Thoracic spine show satisfactory alignment without evidence of acute fracture or dislocatio n. Vertebral body heights are preserved. Moderate to severe multilevel degenerative disc space narro wing and spondylosis. Visualized ribs are unremarkable. IMPRESSION: No acute fracture or dislocation is seen in the thoracic spine. ICD 10 NO FRACTURE, INIT IAL EVALUATION
== END | disposition home or self-care (01) ==
LOC: RADXRMAIN 11:46
PROVIDERS: ATTEND Family Medicine
DX: M54.6 Pain in thoracic spine (principal)
CPT/HCPCS: 72072

== ENCOUNTER 2021-03-02 10:38 | Emergency (ER) | payer MEDICARE, OTHER ==
[2021-03-02 10:46] VITALS: TEMP 98.3
[2021-03-02] MEDS ORDERED: ONDANSETRON 4 MG/2 ML VIAL IVP STA (11:13)
[2021-03-02] MEDS ORDERED: SODIUM CHLORIDE 0.9% 500 ML 500 ML IV STA ×2 (11:13→16:24)
[2021-03-02] MEDS ORDERED: HYDROmorphone 0.5 MG/0.5 ML SYRINGE IVP STA ×2 (11:13→14:59)
--- NOTE | 2021-03-02 11:25 | ED ---
General Adult HPI - General Chief complaint: Chest Pain Stated complaint: Dizziness,Nausea Time Seen by Provider: 03/02/21 11:02 Source: patient, EMS Mode of arrival: EMS Limitations: no limitations - History of Present Illness Initial comments: 71-year-old female presents to the emergency room for several complaints. Patient is not feeling well. Patient states that she has had a headache for the past day or so. Patient also has had a cough and congestion. She has had some mild shortness of breath. She has had some chest tightness as well. She did have Zofran, aspirin, and nitro on the way to the ER. She is nauseous. She did not get vaccinated for COVID-19. She does have a history of COPD.Patient has no other complaints at this time including abdominal pain visual changes. - Related Data Home Medications Medication Instructions Recorded Confirmed Albuterol Sulfate [Ventolin HFA] 2 puff INHALATION RT-Q6H PRN 08/16/20 03/02/21 Loperamide [Imodium] 2 mg PO BID 08/16/20 03/02/21 Omeprazole 40 mg PO DAILY 08/16/20 03/02/21 clonazePAM [KlonoPIN] 0.5 mg PO BID PRN 08/16/20 03/02/21 Budesonide-Formot 160-4.5 Mcg 2 puff INHALATION RT-BID 03/02/21 03/02/21 [Symbicort 160-4.5 Mcg Inhaler] Cyanocobalamin (Vitamin B-12) 1,000 mcg PO DAILY 03/02/21 03/02/21 [Vitamin B-12] Ferrous Sulfate [Feosol] 325 mg PO DAILY 03/02/21 03/02/21 HYDROcodone/APAP 7.5-325MG [[place] 1 tab PO TID PRN 03/02/21 03/02/21 7.5-325] lisinopriL 40 mg PO DAILY 03/02/21 03/02/21 Allergies Allergy/AdvReac Type Severity Reaction Status Date / Time codeine Allergy Rash/Hives Verified 03/02/21 14:10 citalopram [From Celexa] AdvReac stuttering Verified 03/02/21 14:10 Review of Systems ROS Statement: Those systems with pertinent positive or pertinent negative responses have been documented in the HPI. ROS Other: All systems not noted in ROS Statement are negative. Past Medical History Past Medical History: COPD, GERD/Reflux, Hearing Disorder / Deafness, Hypertension, Pneumonia, Sleep Apnea/CPAP/BIPAP Additional Past Medical History / Comment(s): covid +december 2019, herniax2,IBS,fatty liver,arthritis,cyst on pancreas, intraductal papillary mucinous neoplasm 2017, Djd upper arm, sciatica, pre Diabetic, left breast lump. History of Any Multi-Drug Resistant Organisms: None Reported Past Surgical History: Back Surgery, Cholecystectomy Additional Past Surgical History / Comment(s): right oopherectomy, polyp on throat removed, leep procedure Past Anesthesia/Blood Transfusion Reactions: No Reported Reaction Past Psychological History: Anxiety, Depression Smoking Status: Former smoker Past Alcohol Use History: Occasional Past Drug Use History: Marijuana - Past Family History Father Family Medical History: Cancer Additional Family Medical History / Comment(s): stomach cancer Mother Family Medical History: Diabetes Mellitus General Exam Limitations: no limitations General appearance: alert, in no apparent distress Head exam: Present: atraumatic Eye exam: Present: normal appearance, PERRL, EOMI. Absent: scleral icterus, conjunctival injection ENT exam: Present: normal exam, mucous membranes moist Neck exam: Present: normal inspection, full ROM. Absent: tenderness Respiratory exam: Present: normal lung sounds bilaterally. Absent: respiratory distress, wheezes Cardiovascular Exam: Present: regular rate, normal rhythm, normal heart sounds GI/Abdominal exam: Present: soft, normal bowel sounds. Absent: distended, tenderness Course Vital Signs 03/02/21 03/02/21 03/02/21 10:41 11:05 11:57 Temperature 98.3 F Pulse Rate 71 58 L Pulse Rate [ 58 L Chemistry Teacher ] Respiratory 20 18 Rate Blood Pressure 167/76 170/85 O2 Sat by Pulse 98 100 Oximetry 03/02/21 13:11 Temperature Pulse Rate 54 L Pulse Rate [ Chemistry Teacher ] Respiratory 16 Rate Blood Pressure 161/75 O2 Sat by Pulse 97 Oximetry - Reevaluation(s) Reevaluation #1: 03/02/21 15:00 pt was evaluated by Dr Harris recommends CTA. EKG Findings - EKG Comments: EKG Findings:: Normal sinus rhythm, ventricular rate 64, CO interval 138, QTC 422 Medical Decision Making - Medical Decision Making Vitals are stable. Patient is well-appearing. She does have a headache. CBC does show some mild leukocytosis but otherwise unremarkable. CMP normal. EKG shows no ischemic changes. Troponin negative. BNP 663. COVID-19 is negative. Chest x-ray shows lobulated masslike density could be related to previous diagnostic hernia, recommend short-term CT. I did discuss this with patient which she is aware of. CT brain obtained which showedno acute cranial process. CTA shows no evidence for sizable aneurysm. Patient was given several doses of pain medication and did have improvement in symptoms although had a mildly persistent headache. I discussed this case with Dr Pearl who does not feel patient needs to be admitted, refuses admission at this time. Recommends outpatient follow-up. Pt will be discharged home and will return here for any worsening symptoms. She takes [place] at home which she can continue. She will return here for any worsening symptoms. - Lab Data Result diagrams: 03/02/21 11:01 03/02/21 11:56 Lab Results 03/02/21 03/02/21 03/02/21 Range/Units 11:01 11:01 11:01 WBC 14.8 H (3.8-10.6) k/uL RBC 4.56 (3.80-5.40) m/uL Hgb 13.7 (11.4-16.0) gm/dL Hct 41.5 (34.0-46.0) % MCV 91.1 (80.0-100.0) fL MCH 30.0 (25.0-35.0) pg MCHC 33.0 (31.0-37.0) g/dL RDW 14.6 (11.5-15.5) % Plt Count 310 (150-450) k/uL MPV 8.6 Neutrophils % 86 % Lymphocytes % 8 % Monocytes % 4 % Eosinophils % 1 % Basophils % 0 % Neutrophils # 12.7 H (1.3-7.7) k/uL Lymphocytes # 1.3 (1.0-4.8) k/uL Monocytes # 0.6 (0-1.0) k/uL Eosinophils # 0.1 (0-0.7) k/uL Basophils # 0.0 (0-0.2) k/uL PT 10.3 (9.0-12.0) sec INR 0.9 (<1.2) APTT 18.4 L (22.0-30.0) sec Sodium (137-145) mmol/L Potassium (3.5-5.1) mmol/L Chloride (98-107) mmol/L Carbon Dioxide (22-30) mmol/L Anion Gap mmol/L BUN (7-17) mg/dL Creatinine (0.52-1.04) mg/dL Est GFR (CKD-EPI)AfAm (>60 ml/min/1.73 sqM) Est GFR (CKD-EPI)NonAf (>60 ml/min/1.73 sqM) Glucose (74-99) mg/dL Calcium (8.4-10.2) mg/dL Magnesium (1.6-2.3) mg/dL Total Bilirubin (0.2-1.3) mg/dL AST (14-36) U/L ALT (4-34) U/L Alkaline Phosphatase (38-126) U/L Troponin I (0.000-0.034) ng/mL NT-Pro-B Natriuret Pep 663 pg/mL Total Protein (6.3-8.2) g/dL Albumin (3.5-5.0) g/dL Lipase (23-300) U/L Coronavirus (PCR) (Not Detectd) 03/02/21 03/02/21 03/02/21 Range/Units 11:39 11:56 11:56 WBC (3.8-10.6) k/uL RBC (3.80-5.40) m/uL Hgb (11.4-16.0) gm/dL Hct (34.0-46.0) % MCV (80.0-100.0) fL MCH (25.0-35.0) pg MCHC (31.0-37.0) g/dL RDW (11.5-15.5) % Plt Count (150-450) k/uL MPV Neutrophils % % Lymphocytes % % Monocytes % % Eosinophils % % Basophils % % Neutrophils # (1.3-7.7) k/uL Lymphocytes # (1.0-4.8) k/uL Monocytes # (0-1.0) k/uL Eosinophils # (0-0.7) k/uL Basophils # (0-0.2) k/uL PT (9.0-12.0) sec INR (<1.2) APTT (22.0-30.0) sec Sodium 135 L (137-145) mmol/L Potassium 4.2 (3.5-5.1) mmol/L Chloride 104 (98-107) mmol/L Carbon Dioxide 25 (22-30) mmol/L Anion Gap 6 mmol/L BUN 21 H (7-17) mg/dL Creatinine 0.72 (0.52-1.04) mg/dL Est GFR (CKD-EPI)AfAm >90 (>60 ml/min/1.73 sqM) Est GFR (CKD-EPI)NonAf 85 (>60 ml/min/1.73 sqM) Glucose 127 H (74-99) mg/dL Calcium 10.5 H (8.4-10.2) mg/dL Magnesium 2.1 (1.6-2.3) mg/dL Total Bilirubin 0.5 (0.2-1.3) mg/dL AST 21 (14-36) U/L ALT 14 (4-34) U/L Alkaline Phosphatase 102 (38-126) U/L Troponin I <0.012 (0.000-0.034) ng/mL NT-Pro-B Natriuret Pep pg/mL Total Protein 7.6 (6.3-8.2) g/dL Albumin 4.3 (3.5-5.0) g/dL Lipase 33 (23-300) U/L Coronavirus (PCR) Not Detected (Not Detectd) Disposition Clinical Impression: Headache Disposition: HOME SELF-CARE Condition: Good Instructions (If sedation given, give patient instructions): Acute Headache (ED) Additional Instructions: Please follow-up with your doctor in one to 2 days. Return to the emergency room for any worsening symptoms. Is patient prescribed a controlled substance at d/c from ED?: No Referrals: Jorge Gonzalez [Primary Care Provider] - 1-2 days Time of Disposition: 17:04
[2021-03-02 11:49] LABS: Basophils % (A) 0 %; Eosinophils # (A) 0.1 k/uL (0-0.7); Eosinophils % (A) 1 %; HCT 41.5 % (34.0-46.0); HGB 13.7 gm/dL (11.4-16.0); Lymphocytes # (A) 1.3 k/uL (1.0-4.8); Lymphocytes % (A) 8 %; MCV 91.1 fL (80.0-100.0); Mean Platelet Volume 8.6; Monocytes # (A) 0.6 k/uL (0-1.0); Monocytes % (A) 4 %; Neutrophils # (A) 12.7 k/uL (1.3-7.7); Neutrophils % (A) 86 %; Platelet Count 310 k/uL (150-450); RBC 4.56 m/uL (3.80-5.40); RDW 14.6 % (11.5-15.5); WBC 14.8 k/uL (3.8-10.6)
--- NOTE | 2021-03-02 12:24 | XR ---
EXAMINATION TYPE: XR chest 2V DATE OF EXAM: 03/02/2021 COMPARISON: 08/16/2020 TECHNIQUE: PA and lateral views submitted. HISTORY: Pain FINDINGS: The lobulated density posteriorly on the lateral view only Hypertrophic and degenerative changes spine. Heart size stable. Atherosclerotic change aorta. No over t failure. Atherosclerotic change aorta. Arthropathy of the shoulders. Degree of underlying COPD not excluded. Surgical clips in the upper quadrant. IMPRESSION: 1. There is a lobulated masslike density posteriorly on the lateral view along the diaphragmatic surf sang likely related to the history of previous diaphragmatic hernia. This could be confirmed with CT s can on a short-term basis as clinically warranted.
[2021-03-02 12:39] LABS: ALT 14 U/L (4-34); AST 21 U/L (14-36); African American GFR (CKD) >90 (>60 ml/min/1.73 sqM); Albumin 4.3 g/dL (3.5-5.0); Alkaline Phosphatase 102 U/L (38-126); Anion Gap 6 mmol/L; Blood Urea Nitrogen 21 mg/dL (7-17); Calcium 10.5 mg/dL (8.4-10.2); Carbon Dioxide 25 mmol/L (22-30); Chloride 104 mmol/L (98-107); Glucose 127 mg/dL (74-99); Lipase 33 U/L (23-300); Magnesium 2.1 mg/dL (1.6-2.3); Non-African American GFR(CKD) 85 (>60 ml/min/1.73 sqM); Potassium 4.2 mmol/L (3.5-5.1); Sodium 135 mmol/L (137-145); Total Bilirubin 0.5 mg/dL (0.2-1.3); Total Protein 7.6 g/dL (6.3-8.2)
[2021-03-02 12:40] LABS: INR 0.9 (<1.2); Prothrombin Time 10.3 sec (9.0-12.0)
[2021-03-02 12:43] LABS: Partial Thromboplastin Time 18.4 sec (22.0-30.0)
--- NOTE | 2021-03-02 13:46 | CT ---
EXAMINATION TYPE: CT brain wo con DATE OF EXAM: 03/02/2021 COMPARISON: none HISTORY: Headache CT DLP: 1055.[address] of the brain was performed. The ventricles, basal cisterns and sulci overlying the cerebral convexities demonstrate mild enlargem ent. There is no evidence for intracranial hemorrhage or sulcal effacement. There is decreased attenuation about the periventricular white matter and deep white matter of both c erebral hemispheres, compatible with chronic small vessel ischemia. Differential diagnosis does inclu de demyelination. No mass effects are seen.No midline shift. Osseous calvarium is intact. If symptoms persist consider MRI. IMPRESSION: 1. Age related atrophic and chronic small vessel ischemic change without acute intracranial process s een at this time.
[2021-03-02] MEDS ORDERED: diphenhydrAMINE 50 MG/ML 1 ML VIAL IVP STA (14:17)
[2021-03-02] MEDS ORDERED: METOCLOPRAMIDE 5 MG/ML 2 ML VIAL IVP STA (14:17)
[2021-03-02] MEDS ORDERED: KETOROLAC 30 MG/ML 1 ML VIAL IVP STA (14:17)
--- NOTE | 2021-03-02 15:29 | CT ---
EXAMINATION TYPE: CT angio head DATE OF EXAM: 03/02/2021 COMPARISON: None HISTORY: Pain, elevated blood pressure CT DLP: 954.1 mGycm CONTRAST: CTA [place] with 3-D reconstruction is performed and with IV Contrast, patient injected with 100, wasted 21 ml mL of Isovue 370. Contrast CTA of the [place] was performed 3-D reconstruction imaging obtained at a separate workstation. Vertebrobasilar system as well as intracranial portions of the internal carotid arterie s and their major tributaries are patent. I do not see evidence for sizable aneurysm or vascular mal formation. Please note MRI provides greater sensitivity and specificity. Visualized brain appears g rossly unremarkable. IMPRESSION: No evidence for sizable aneurysm or vascular malformation.
[2021-03-02] MEDS ORDERED: SUMAtriptan succinate 6 MG/0.5 ML VIAL SQ STA (16:19)
[2021-03-02] MEDS ORDERED: LORazepam 2 MG/ML INJ IV STA (16:20)
[2021-03-02] MEDS ORDERED: ONDANSETRON 4 MG ODT STARTER PACK 2 TAB BTL PO STA (17:41)
[2021-03-02 17:42] VITALS: BP 172/87; PULSE 58; RESP 18
== END 2021-03-02 17:45 | disposition home or self-care (01) ==
LOC: EC 10:38
DX: R51.9 Headache, unspecified (principal); Z20.822 Contact with and (suspected) exposure to COVID-19; I10 Essential (primary) hypertension; J44.9 Chronic obstructive pulmonary disease, unspecified; K21.9 Gastro-esophageal reflux disease without esophagitis; F32.A Depression, unspecified; F41.9 Anxiety disorder, unspecified; F12.90 Cannabis use, unspecified, uncomplicated; Z87.891 Personal history of nicotine dependence; Z79.51 Long term (current) use of inhaled steroids; Z79.899 Other long term (current) drug therapy
CPT/HCPCS: 36415; 93005; 83880; 80053; 83690; 83735; 84484; 85025; 85610; 85730; 87635; 71046; 70496; 70450; 99285; 96374; 96375 ×4; 96376; 96361; J3030; J2060; J1200; J2765; J1885; S0119; J1170; Q9967